=== PATIENT | male | born 1950 | race Caucasian/White ===

== ENCOUNTER → 2023-01-14 | Outpatient (CLI) | payer OTHER, SELFPAY ==
--- NOTE | 2023-01-14 11:59 | EKG12_ITS ---
Test Reason : ROUTINE Blood Pressure : / mmHG Vent. Rate : 061 BPM Atrial Rate : 061 BPM P-R Int : 226 ms QRS Dur : 098 ms QT Int : 414 ms P-R-T Axes : 057 011 072 degrees QTc Int : 416 ms Sinus rhythm with 1st degree A-V block with Premature atrial complexes Otherwise normal ECG Confirmed by MONTSERRAT RODRIGUEZ, BRANDON ([id number]), script editor AZRA GOULD ([id number]) on 01/15/2023 12:40:54 PM Referred By: JONNATHAN Confirmed By:BRANDON MARIANO MD
--- NOTE | 2023-01-14 12:03 | ECHOD_ITS ---
Reason For Study: CAD/ASHD Procedure This was a 2D Doppler, Color Flow transthoracic echocardiogram. Exam performed in department. Left Ventricle Normal LV size. The estimated ejection fraction is 55 %. Stage 1 diastolic dysfunction. No regional wall motion abnormalities noted. Right Ventricle Normal right ventricle. Normal systolic function. Atria The left atrium is moderately enlarged. Normal right atrium. Mitral Valve Bileaflet diffuse mitral valve thickening. Tricuspid Valve Normal tricuspid valve. Mild (1+) tricuspid valve insufficiency. Pulmonary artery systolic pressure is 34 mmHg. Aortic Valve Trisinus/trileaflet aortic valve. Mild focal aortic valve calcification. Pulmonic Valve Normal pulmonic valve. Great Vessels Normal aortic root. The pulmonary artery is normal size. Normal inferior vena cava. Pericardium/Pleural No pericardial effusion. MMode/2D Measurements & Calculations LVIDd: 5.6 cm IVSd: 1.2 cm Ao root diam: 3.4 cm LVIDs: 4.2 cm LVPWd: 1.1 cm RVDd: 3.4 cm FS: 26.0 % LAV(MOD-bp): 102.1 ml EDV(MOD-sp4): 128.7 ml EDV(MOD-sp2): 115.0 ml LAV(MOD-bp) Indexed: 52.8 ml/m2 ESV(MOD-sp4): 50.9 ml ESV(MOD-sp2): 47.6 ml LAV(MOD-sp2): 93.0 ml EF(MOD-sp4): 60.5 % EF(MOD-sp2): 58.6 % LAV(MOD-sp4): 93.0 ml SV(MOD-sp4): 77.8 ml SV(MOD-sp2): 67.4 ml LA A4 area: 27.2 cm2 LA dimension(2D): 5.3 cm TAPSE: 1.9 cm RA A4 area: 15.2 cm2 Time Measurements MV dec time: 0.48 sec Doppler Measurements & Calculations MV E max chet: 76.2 cm/sec Lat Peak E' Chet: 7.0 cm/sec Med Peak E' Chet: 3.6 cm/sec MV A max chet: 124.2 cm/sec E/E' lat: 10.9 E/E' med: 21.3 MV E/A: 0.61 MV V2 max: 158.3 cm/sec MV dec slope: 158.4 cm/sec2 Ao V2 max: 117.1 cm/sec MV max P.0 mmHg Ao max P.5 mmHg MV V2 mean: 87.9 cm/sec Ao V2 mean: 80.8 cm/sec MV mean P.5 mmHg Ao mean P.0 mmHg MV V2 VTI: 48.1 cm Ao V2 VTI: 29.1 cm AV (velocity ratio): 0.61 LV V1 max: 77.8 cm/sec PA V2 max: 111.9 cm/sec TR max chet: 270.2 cm/sec LV V1 max P.4 mmHg PA V2 mean: 66.5 cm/sec TR max P.2 mmHg LV V1 mean P.3 mmHg LV V1 mean: 53.4 cm/sec LV V1 VTI: 17.8 cm ECHO/Echo Complete Interpretation Summary Normal LV size. The estimated ejection fraction is 55 %. Stage 1 diastolic dysfunction. Pulmonary artery systolic pressure is 34 mmHg. Ordering Physician: [place] Referring Physician: [facility] Performed By: Peggy Melgar, CECELIA, RVT
== END | disposition home or self-care (01) ==
LOC: CVS 11:52
PROVIDERS: Visit Provider Chiropractor
DX: I25.10 Atherosclerotic heart disease of native coronary artery without angina pectoris (principal); I21.9 Acute myocardial infarction, unspecified
CPT/HCPCS: 93005; 93306